=== PATIENT | female | born 2000 | race African-American/Black ===

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

== ENCOUNTER 2018-02-12 13:10 | Emergency (ER) | payer MEDICAID ==
[~2018-02-12] VITALS: Ht 162.6 cm; Wt 63.5 kg
[2018-02-12 13:21] VITALS: BP 115/77
[2018-02-12] MEDS ORDERED: SODIUM CHLORIDE 0.9% 1,000 ML IVB ONE (13:26)
[2018-02-12] MEDS ORDERED: PANTOPRAZOLE 40 MG/10 ML VIAL IV STA (13:26)
[2018-02-12] MEDS ORDERED: PROCHLORPERAZINE EDISYLATE 5 MG/ML 2ML VIAL IV ONE (13:30)
[2018-02-12] MEDS ORDERED: MORPHINE SULFATE 4 MG/ML SYR/VIAL IV ONE (13:30)
[2018-02-12 15:26] LABS: Basophils # (auto) 0 uL; Basophils % (auto) 0.3 % (0.0-2.0); Eosinophils # (auto) 0 uL; Eosinophils % (auto) 0.9 % (0.0-7.0); Hematocrit 45.1 % (36.0-46.0); Hemoglobin 15.2 g/dL (12.2-16.2); Lymphocytes # (auto) 0.9 uL; Mean Corpuscular Hemoglobin 30.6 pg (28.0-32.0); Mean Corpuscular Hgb Conc. 33.8 g/dL (32.0-36.0); Mean Corpuscular Volume 90.4 fL (80.0-100.0); Monocytes # (auto) 0.5 uL; Monocytes % (auto) 8.9 % (0.0-12.0); Neutrophils % (auto) 73.9 % (37.0-80.0); Nucleated Red Blood Cells % 0.2 %; Platelet Count (auto) 301 10^3/uL (140-450); Red Blood Cells 4.99 10^6/uL (4.0-5.20); Red Cell Distribution Width 13.6 % (11.8-14.3); White Blood Cell 5.4 10^3/uL (4.4-10.8)
[2018-02-12 15:36] LABS: Albumin 4.4 g/dL (3.4-5.0); BUN/Creatinine Ratio 10.8; Calcium 9.1 mg/dL (8.5-10.1); Potassium 3.3 mmol/L (3.5-5.1); Total Protein 8.8 g/dL (6.4-8.2)
== END 2018-02-12 17:54 | disposition home or self-care (01) ==
LOC: EDBD 13:10 → ER 13:10
DX: F12.188 Cannabis abuse with other cannabis-induced disorder (principal); R11.10 Vomiting, unspecified; F17.210 Nicotine dependence, cigarettes, uncomplicated
CPT/HCPCS: 36415; 80053; 83690; 85025; 94761

== ENCOUNTER 2020-12-24 02:52 | Emergency (ER) | payer MEDICAID ==
[~2020-12-24] VITALS: Ht 162.6 cm; Wt 63.5 kg
[2020-12-24 04:04] VITALS: BP 121/86
== END 2020-12-24 04:04 | disposition left against medical advice (07) ==
LOC: ER 02:52
DX: T15.82XA Foreign body in other and multiple parts of external eye, left eye, initial encounter (principal); F17.210 Nicotine dependence, cigarettes, uncomplicated; F12.10 Cannabis abuse, uncomplicated; W22.8XXA Striking against or struck by other objects, initial encounter; Y93.89 Activity, other specified; Y92.89 Other specified places as the place of occurrence of the external cause; Y99.8 Other external cause status

== ENCOUNTER 2022-01-27 16:36 | Emergency (ER) | payer MEDICAID ==
[~2022-01-27] VITALS: Ht 162.6 cm; Wt 78.0 kg
[2022-01-27] MEDS ORDERED: ALPRAZolam 0.5 MG TAB PO ONE (18:00)
[2022-01-27] MEDS ORDERED: ALPR1TAB2 PO (18:20)
[2022-01-27] MEDS ORDERED: KEP500T PO (18:20)
[2022-01-27 18:24] VITALS: BP 93/53
== END 2022-01-27 18:27 | disposition home or self-care (01) ==
LOC: ER 16:36
DX: F41.9 Anxiety disorder, unspecified (principal); R56.9 Unspecified convulsions; F17.210 Nicotine dependence, cigarettes, uncomplicated; F12.10 Cannabis abuse, uncomplicated; Z76.0 Encounter for issue of repeat prescription

== ENCOUNTER 2022-04-13 10:05 | Emergency (ER) | payer MEDICAID ==
[~2022-04-13] VITALS: Ht 162.6 cm; Wt 76.1 kg
[~2022-04-13 10:05] MED LIST: ALPR1TAB2 PO; KEP500T PO
[2022-04-13 13:30] VITALS: BP 136/72
[2022-04-13] MEDS ORDERED: HYDR-3682 PO (13:39)
[2022-04-13] MEDS ORDERED: LORazepam 0.5 MG TAB PO ONE (13:45)
[2022-04-13] MEDS ORDERED: ALPRAZolam 0.5 MG TAB PO ONE (13:45)
== END 2022-04-13 14:02 | disposition home or self-care (01) ==
LOC: ER 10:05
DX: F41.9 Anxiety disorder, unspecified (principal)

== ENCOUNTER 2023-03-14 11:55 | Emergency (ER) | payer MEDICAID ==
[~2023-03-14] VITALS: Ht 162.6 cm; Wt 66.5 kg
[~2023-03-14 11:55] MED LIST changes: +HYDR-3682 PO
[2023-03-14 12:02] VITALS: BP 136/85; PULSE 76; RESP 16; O2SAT 97
== END 2023-03-14 14:04 | disposition left against medical advice (07) ==
LOC: ER 11:55
DX: F41.9 Anxiety disorder, unspecified (principal); Z53.21 Procedure and treatment not carried out due to patient leaving prior to being seen by health care provider

== ENCOUNTER 2023-05-21 11:52 | Emergency (ER) | payer MEDICAID ==
[~2023-05-21] VITALS: Ht 162.6 cm; Wt 69.5 kg
[2023-05-21 12:00] VITALS: BP 112/72; PULSE 65; RESP 18; O2SAT 99
== END 2023-05-21 14:19 | disposition left against medical advice (07) ==
LOC: ER 11:52
DX: H57.89 Other specified disorders of eye and adnexa (principal); Z53.21 Procedure and treatment not carried out due to patient leaving prior to being seen by health care provider

== ENCOUNTER 2023-10-05 21:35 | Emergency (ER) | payer MEDICAID ==
[~2023-10-05] VITALS: Ht 160 cm; Wt 61.9 kg
[2023-10-05 21:35] VITALS: BP 120/78; PULSE 80; RESP 14; O2SAT 99
== END 2023-10-06 02:52 | disposition left against medical advice (07) ==
LOC: ER 21:35
DX: K08.89 Other specified disorders of teeth and supporting structures (principal); Z53.21 Procedure and treatment not carried out due to patient leaving prior to being seen by health care provider

== ENCOUNTER 2024-08-16 12:15 | Emergency (ER) | payer MEDICAID ==
[~2024-08-16] VITALS: Ht 162.6 cm; Wt 53.0 kg
[2024-08-16 14:25] VITALS: BP 100/74; PULSE 94; RESP 21; TEMP 97.6; O2SAT 100
--- NOTE | 2024-08-16 14:28 | ED.PDOC ---
Eye-HPI HPI Comments A 24 YEAR OLD FEMALE PRESENTS TO THE ED WITH COMPLAINT OF RIGHT LOWER DENTAL PAIN. PATIENT STATES SHE HAS BEEN EXPERIENCING DENTAL PAIN ON THE RIGHT LOWER SIDE OF HER MOUTH FOR THE PAST 3 DAYS. PATIENT REPORTS SHE WAS TRIED OTC PAIN MEDICATIONS WITH MINIMAL IMPROVEMENT. PATIENT DENIES FEVER, CHILLS, SHORTNESS OF BREATH, CHEST PAIN, ABDOMINAL PAIN, NAUSEA, VOMITING, HEADACHE, OR OTHER COMPLAINTS. NO OTHER SYMPTOMS OR MODIFYING FACTORS AT THIS TIME. PATIENT IS ALERT, ORIENTED X 4, AND HAS STEADY GAIT. Chief Complaint: Tooth Pain Time Seen by MD: 12:41 Primary Care Provider: NONE Reviewed Notes: Nurses Notes, Medications, Allergies Allergies: Coded Allergies: NO KNOWN ALLERGIES (Unverified , 06/15/15) Home Meds Active Scripts Benzocaine (Dental) (HURRICAINE SPRAY) 1 Spr Sp, 1 SPR MT TID, #100 SPRAY Prov:ANUSHA MANRIQUEZ 08/16/24 Clindamycin Hcl (Clindamycin Hcl) 300 Mg Cap, 1 CAP PO TID, #30 CAP Prov:ANUSHA MANRIQUEZ 08/16/24 Hydroxyzine Hcl (Hydroxyzine Hcl) 25 Mg Tab, 1 TAB PO PRN, #15 TAB 0 Refills 1-2 tablets up to 4 times daily, as needed Prov:HERACLIO SAEED 04/13/22 Alprazolam (Xanax) 1 Mg Tab, 1 TAB PO BID, #12 TAB Prov:ANUSHA MANRIQUEZ 01/27/22 Levetiracetam (KEPPRA TABLET) 500 Mg Tb, 500 MG PO BID, #30 TAB Prov:ANUSHA MANRIQUEZ 01/27/22 Information Source: Patient Mode of Arrival: Ambulatory Timing: Days Duration: Since onset, Days Prehospital treatment: None Quality: Pain, Red Lids: Normal Conjunctiva: Normal Cornea: Normal Pupils: Normal EOM: Normal Fundus: Normal Slit lamp exam: Normal Anterior chamber: Normal Mouth Location: Right, Lower, Tooth/Teeth, Gums Mouth: Right, Lower, Premolar, Molar, Tender, Carious ENT Ear Exam: Normal, Normal, Normal Nose: Normal Sinuses: Normal Oropharynx: Normal Onset: Spontaneous Throat Exposed to: None History of: None Last Tetanus: Unknown Modifying factors: Nothing Associated signs and symptoms: Tooth Pain Past Medical History PAST MEDICAL HISTORY: Anxiety, Seizures Surgical History: Denies all surgeries PAPER MILL MANAGER History: No Pertinent PAPER MILL MANAGER History Family History Family History: Reviewed,noncontributory to illness Social History Smoker: Non-Smoker Alcohol: Denies ETOH Use Drugs: Denies Drug Use Lives In: Home Constitutional: denies: chills, diaphoresis, fatigue, fever, malaise, sweats, weakness, others EENTM: reports: mouth pain (RIGHT LOWER DENTAL PAIN); denies: blurred vision, double vision, ear bleeding, ear discharge, ear drainage, ear pain, ear ringing, eye pain, eye redness, hearing loss, mouth swelling, nasal discharge, nose bleeding, nose congestion, nose pain, photophobia, tearing, throat pain, throat swelling, voice changes, others Respiratory: denies: cough, hemoptysis, orthopnea, SOB at rest, shortness of b reath, SOB with excertion, stridor, wheezing, others Cardiovascular: denies: chest pain, dizzy spells, diaphoresis, Dyspnea on exertion, edema, irregular heart beat, left arm pain, lightheadedness, palpitations, PND, syncope, others Gastrointestinal: denies: abdomen distended, abdominal pain, blood streaked bowels, constipated, diarrhea, dysphagia, difficulty swallowing, hematemesis, melena, nausea, poor appetite, poor fluid intake, rectal bleeding, rectal pain, vomiting, others Genitourinary: denies: abnormal vagina bleeding, burning, dyspareunia, dysuria, flank pain, frequency, hematuria, incontinence, pain, , vagina discharge, urgency, others Neurological: denies: dizziness, fainting, headache, left sided numbness, left sided weakness, numbness, paresthesia, pre-existing deficit, right sided numbness, right sided weakness, seizure, speech problems, tingling, tremors, weakness, others Musculoskeletal: denies: back pain, gout, joint pain, joint swelling, muscle pain, muscle stiffness, neck pain, others Integumetry: denies: bruises, change in color, change in hair/nails, dryness, laceration, lesions, lumps, rash, wounds, others Allergic/Immunocompromised: denies: Difficulty Healing, Frequent Infections, Hives, Itching, others Hematologic/Lymphatic: denies: anemia, blood clots, easy bleeding, easy bruising, swollen glands, others Endocrine: denies: excessive hunger, excessive sweating, excessive thirst, excessive urination, flushing, intolerance to cold, intolerance to heat, unexplained weight gain, unexplained weight loss, others Psychiatric: denies: anxiety, bipolar disorder, depression, hopeless, panic disorder, schizophrenia, sleepless, suicidal, others All Other Systems: Reviewed and Negative Physical Exam General Appearance: No Apparent Distress, Normal HEENT: Normal ENT Inspection, PERRL/EOMI, Pharynx Normal, TMs Normal, Other (ERYTHEMA AND SWELLING ON BILATERAL UPPER GUM AROUND TOOTH, DENTAL INFECTION, NO FACIAL SWELLING. ) Neck: Full Range of Motion, Non-Tender, Normal, Normal Inspection Respiratory: Chest Non-Tender, Lungs Clear, No Accessory Muscle Use, No Respiratory Distress, Normal Breath Sounds Cardiovascular: No Edema, No JVD, No Murmur, No Gallop, Normal Peripheral Pulses, Regular Rate/Rhythm Breast Exam: Deferred Gastrointestinal: No Organomegaly, Non Tender, No Pulsatile Mass, Normal Bowel Sounds, Soft Genitalia: Deferred Pelvic: Deferred Rectal: Deferred Extremities: No calf tenderness, Normal capillary refill, Normal inspection, Normal range of motion, Non-tender, No pedal edema Musculoskeletal : Apperance: Normal Neurologic: Alert, audio recording engineer II-XII nml as Tested, No Motor Deficits, Normal Affect, Normal Mood, No Sensory Deficits Cerebellar Function: Normal Reflexes: Normal Skin: Dry, Normal Color, Warm Peripheral Pulses: 2+ carotid (R), 2+ carotid (L) Lymphatic: No Adenopathy Was a procedure done? Was a procedure done?: No EENT DIFF Eye: N/A Ear: Otitis Externa, Otitis Media, Dental, N/A Nose: N/A Mouth: Other (DENTAL PAIN, DENTAL CARIES, DENTAL INFECTION, DENTAL ABSCESS, GINGIVITIS) Sore Throat: N/A X-Ray, Labs, Meds, VS Vital Signs Date Time Temp Pulse Resp B/P (MAP) Pulse Ox O2 Delivery O2 Flow Rate FiO2 08/16/24 14:25 97.6 94 21 100/74 (83) 100 97.6 08/16/24 14:25 94 21 100 Room Air 08/16/24 12:35 97.6 94 20 100/74 (83) 100 97.6 Current Medications Medications (Trade) Dose Ordered Sig/Margot Route Start Time Stop Time Status Last Admin Acetaminophen/ Hydrocodone Bitart ([place] 5/325MG Tab) 1 tab ONCE ONCE PO 08/16/24 14:30 08/16/24 14:31 DC 08/16/24 14:33 X-Ray, Labs, Meds, VS Comment EXTERNAL MEDICAL RECORDS REVIEWED: [NONE] INDEPENDENT HISTORIANS: [NONE] SOCIAL DETERMINANTS OF HEALTH: [NONE] LABS ORDERED: NONE REVIEWED AND INTERPRETED RESULTS: NONE IMAGING ORDERED: NONE TREATMENTS ORDERED: NORCO 5/325 MG P.O. PROCEDURES PERFORMED: NONE CRITICAL CARE TIME: NONE I HAVE DISCUSSED THE PATIENT WITH THE ATTENDING PHYSICIAN DR. FIERRO AND HE AGREES WITH THE PATIENT'S PLAN OF CARE AND DISPOSITION. BASED ON HISTORY OF PRESENT ILLNESS, AND PHYSICAL EXAM, PATIENT WILL BE DISCHARGED HOME. DISCUSSED PLAN FOR DISCHARGE HOME WITH RX [CLINDAMYCIN AND HU RRICANE SPRAY]. MEDICATION WARNINGS GIVEN. SHARED DECISION MAKING: PATIENT INSTRUCTED TO FOLLOW UP WITH PRIMARY CARE PROVIDER IN 1-2 DAYS FOR RE-EVALUATION OF SYMPTOMS. PATIENT VERBALIZES UNDERSTANDING TO RETURN TO ED FOR NEW OR WORSENING SYMPTOMS OR IF FOLLOW UP WITH PCP CANNOT BE OBTAINED. PATIENT FEELS COMFORTABLE GOING HOME AT THIS TIME. ALL QUESTIONS ADDRESSED AT TIME OF DISCHARGE. Time of 1ST Reevaluation: 15:00 Reevaluation 1ST: Improved Patient Education/Counseling: Diagnosis, Treatment, Need For Follow Up Family Education/Counseling: Diagnosis, Treatment, Need For Follow Up Medical Screening: No EMC Exist At This Time Departure 1 Departure Time of Disposition: 15:00 Impression: Primary Impression: Dental infection Disposition: 01 HOME / SELF CARE / HOMELESS Condition: Stable Additional Instructions: FOLLOW-UP WITH PCP AND DENTIST IN 1 TO 2 DAYS. TAKE MEDICATIONS PRESCRIBED. RETURN TO ED FOR ANY NEW OR WORSENING SYMPTOMS. e-Prescriptions Benzocaine (Dental) (HURRICAINE SPRAY) 1 Spr Sp 1 SPR MT TID, #100 SPRAY Prov: ANUSHA MANRIQUEZ 08/16/24 Clindamycin Hcl (Clindamycin Hcl) 300 Mg Cap 1 CAP PO TID, #30 CAP Prov: ANUSHA MANRIQUEZ 08/16/24 Discharged With: Self Critical Care Note Critical Care Time?: No Stability Stability form required: No I personally scribed for ANUSHA MANRIQUEZ ([email or web address]) on 08/16/24 at 14:28. Electronically submitted by Feng Mclean ([email or web address]). ANUSHA MANRIQUEZ Aug 16, 2024 14:28
[2024-08-16] MEDS: HYDROcodone-ACET 5/325MG TAB PO ONE (14:33)
[2024-08-16] MEDS ORDERED: HUR60 MT (14:47)
[2024-08-16] MEDS ORDERED: CLIN1CAP70 PO (14:47)
== END 2024-08-16 14:53 | disposition home or self-care (01) ==
LOC: ER 12:15
DX: K04.7 Periapical abscess without sinus (principal); F41.9 Anxiety disorder, unspecified; Z79.899 Other long term (current) drug therapy

== ENCOUNTER 2025-01-09 01:13 | Emergency (ER) | payer MEDICAID ==
[~2025-01-09] VITALS: Ht 162.6 cm; Wt 60.0 kg
[~2025-01-09 01:13] MED LIST changes: +CLIN1CAP70 PO; +HUR60 MT
[2025-01-09 01:16] VITALS: BP 125/76; PULSE 84; RESP 16; TEMP 98.3; O2SAT 99
[2025-01-09] MEDS ORDERED: ACET500T58 PO (01:52)
[2025-01-09] MEDS ORDERED: AMOX875T4 PO (01:52)
--- NOTE | 2025-01-09 01:52 | ED.PDOC ---
Eye-HPI HPI Comments 24-year-old female presents to ER with complaints of toothache x2 days. Patient reports that she has been experiencing left lower toothache pain x2 days. She rates her current pain a 9/10 and denies use of medications for current symptoms. Patient presents to ER ambulatory on arrival, with steady gait, in no distress. Denies fever, body aches, chills, headache or any further symptoms/complaints Chief Complaint: Tooth Pain Time Seen by MD: 01:27 Primary Care Provider: NONE Reviewed Notes: Nurses Notes, Medications, Allergies Allergies: Coded Allergies: NO KNOWN ALLERGIES (Unverified , 06/15/15) Home Meds Active Scripts Amoxicillin & Pot Clavulanate (Amoxicillin/Potassium Cla) 875 Mg Tab, 1 TAB PO BID for 7 Days, #14 TAB 0 Refills Prov:NOREEN WALTON 01/09/25 Acetaminophen (Acetaminophen) 500 Mg Tab, 500 MG PO Q4HPRN, #30 TAB 0 Refills Prov:NOREEN WALTON 01/09/25 Benzocaine (Dental) (HURRICAINE SPRAY) 1 Spr Sp, 1 SPR MT TID, #100 SPRAY Prov:ANUSHA MANRIQUEZ 08/16/24 Clindamycin Hcl (Clindamycin Hcl) 300 Mg Cap, 1 CAP PO TID, #30 CAP Prov:ANUSHA MANRIQUEZ 08/16/24 Hydroxyzine Hcl (Hydroxyzine Hcl) 25 Mg Tab, 1 TAB PO PRN, #15 TAB 0 Refills 1-2 tablets up to 4 times daily, as needed Prov:HERACLIO SAEED 04/13/22 Alprazolam (Xanax) 1 Mg Tab, 1 TAB PO BID, #12 TAB Prov:ANUSHA MANRIQUEZ 01/27/22 Levetiracetam (KEPPRA TABLET) 500 Mg Tb, 500 MG PO BID, #30 TAB Prov:ANUSHA MANRIQUEZ 01/27/22 Information Source: Patient Mode of Arrival: Ambulatory Past Medical History PAST MEDICAL HISTORY: Anxiety, Seizures Surgical History: Denies all surgeries SHAREPOINT ADMIN History: No Pertinent SHAREPOINT ADMIN History Family History Family History: Unknown Social History Smoker: Non-Smoker Alcohol: Denies ETOH Use Drugs: Denies Drug Use Lives In: Home Constitutional: denies: chills, diaphoresis, fatigue, fever, malaise, sweats, weakness, others EENTM: reports: others (As stated in HPI) Respiratory: denies: cough, hemoptysis, orthopnea, SOB at rest, shortness of breath, SOB with excertion, stridor, wheezing, others Cardiovascular: denies: chest pain, dizzy spells, diaphoresis, Dyspnea on exertion, edema, irregular heart beat, left arm pain, lightheadedness, palpitations, PND, syncope, others Gastrointestinal: denies: abdomen distended, abdominal pain, blood streaked bowels, constipated, diarrhea, dysphagia, difficulty swallowing, hematemesis, melena, nausea, poor appetite, poor fluid intake, rectal bleeding, rectal pain, vomiting, others Genitourinary: denies: abnormal vagina bleeding, burning, dyspareunia, dysuria, flank pain, frequency, hematuria, incontinence, pain, , vagina discharge, urgency, others Neurological: denies: dizziness, fainting, headache, left sided numbness, left sided weakness, numbness, paresthesia, pre-existing deficit, right sided numbness, right sided weakness, seizure, speech problems, tingling, tremors, weakness, others Musculoskeletal: denies: back pain, gout, joint pain, joint swelling, muscle pain, muscle stiffness, neck pain, others Integumetry: denies: bruises, change in color, change in hair/nails, dryness, laceration, lesions, lumps, rash, wounds, others Allergic/Immunocompromised: denies: Difficulty Healing, Frequent Infections, Hives, Itching, others Hematologic/Lymphatic: denies: anemia, blood clots, easy bleeding, easy bruising, swollen glands, others Endocrine: denies: excessive hunger, excessive sweating, excessive thirst, excessive urination, flushing, intolerance to cold, intolerance to heat, unexplained weight gain, unexplained weight loss, others Psychiatric: denies: anxiety, bipolar disorder, depression, hopeless, panic disorder, schizophrenia, sleepless, suicidal, others Physical Exam General Appearance: No Apparent Distress HEENT: PERRL/EOMI, Pharynx Normal, TMs Normal, Other (Several left lower posterior teeth missing with mild swelling/erythema to surrounding gums, no bleeding/drainage noted. No facial swelling/skin changes noted) Neck: Full Range of Motion, Non-Tender, Normal Respiratory: Chest Non-Tender, Lungs Clear, No Accessory Muscle Use, No Respiratory Distress, Normal Breath Sounds Cardiovascular: No Murmur, No Gallop, Regular Rate/Rhythm Breast Exam: Deferred Gastrointestinal: NOT DONE Genitalia: Deferred Pelvic: Deferred Rectal: Deferred Extremities: Normal capillary refill, Normal range of motion Neurologic: Alert, product developer II-XII nml as Tested, No Motor Deficits, Normal Affect, Normal Mood, No Sensory Deficits Cerebellar Function: Normal Reflexes: Normal Skin: Dry, Normal Color, Warm Lymphatic: No Adenopathy Was a procedure done? Was a procedure done?: No Sedation Sedation?: No EENT DIFF Eye: N/A Mouth: Thrush, Other (Dental abscess, Tano's angina) X-Ray, Labs, Meds, VS Vital Signs Date Time Temp Pulse Resp B/P (MAP) Pulse Ox O2 Delivery O2 Flow Rate FiO2 01/09/25 01:16 98.3 84 16 125/76 99 98.3 Hurricane spray ordered, patient educated on proper use/dosage Rocephin 1 g IM ordered Patient had improvement in symptoms and in no distress prior to discharge Advised to follow up with PCP and dentist in 1-2 days Patient verbalized understanding and agreeable with current plan of care Advised to return to ER immediately if symptoms worsen Time of 1ST Reevaluation: 01:34 Reevaluation 1ST: N/A Patient Education/Counseling: Diagnosis, Treatment, Prognosis, Need For Follow Up Family Education/Counseling: No Family Present SEPSIS Sepsis Screen Date sepsis recognized/suspect: Jan 09, 2025 Time Sepsis recognized/suspect: 0116 Recent Procedure: No On Antibiotic Therapy: No Respiratory Rate >20: No Heart Rate >90: No Temp<36 C (96.8 F) or >38.3 C: No SBP <90 or MAP <65 mmHG: No New Acute Mental Status Change: No Is the patient on CPAP, BIPAP,: No Vital Signs Date Time Temp Pulse Resp B/P (MAP) Pulse Ox O2 Delivery O2 Flow Rate FiO2 01/09/25 01:16 98.3 84 16 125/76 99 98.3 Departure 1 Departure Time of Disposition: 01:50 Impression: Primary Impression: Dental infection Disposition: HOME / SELF CARE / HOMELESS Condition: Stable e-Prescriptions Amoxicillin & Pot Clavulanate (Amoxicillin/Potassium Cla) 875 Mg Tab 1 TAB PO BID for 7 Days, #14 TAB 0 Refills Prov: NOREEN WALTON 01/09/25 Acetaminophen (Acetaminophen) 500 Mg Tab 500 MG PO Q4HPRN, #30 TAB 0 Refills Prov: NOREEN WALTON 01/09/25 Discharged With: Self Critical Care Note Critical Care Time?: No Stability Stability form required: No Heart Score Heart Score: Heart Score Response (Comments) Value History N/A 0 EKG N/A 0 Age N/A 0 Risk Factors N/A 0 Troponin N/A 0 Total 0 NOREEN WALTON Jan 09, 2025 01:52
[2025-01-09] MEDS: BENZOCAINE (DENTAL) 20 % SPRAY 60ML MT ONE (02:00)
[2025-01-09] MEDS: cefTRIAXone SOD 1,000 MG VL IM ONE (02:00)
== END 2025-01-09 03:06 | disposition home or self-care (01) ==
LOC: ER 01:13
DX: K04.7 Periapical abscess without sinus (principal); F41.9 Anxiety disorder, unspecified; Z79.899 Other long term (current) drug therapy
CPT/HCPCS: 96372; 99283; J0696

== ENCOUNTER 2025-03-17 11:35 | Emergency (ER) | payer MEDICAID ==
[~2025-03-17] VITALS: Ht 162.6 cm; Wt 57.5 kg
[~2025-03-17 11:35] MED LIST changes: +ACET500T58 PO; +AMOX875T4 PO
--- NOTE | 2025-03-17 13:00 | ED.PDOC ---
Eye-HPI HPI Comments This is a pleasant 25-year-old female with no MHx that presents with a chief complaint of a headache located to the frontal lobe and tooth pain located to the bilateral upper quadrants Patient reports the pain is affecting her ability to speak Patient reports that she is currently undergoing dental work at this time. She is currently on antibiotics but does not recall the name of the medication. She does have a history of not completing antibiotic courses in the past due to her feeling sick. Currently she is managing her pain with [id number] Tylenol and Motrin with minimal improvement. Chief Complaint: Tooth Pain Time Seen by MD: 11:46 Primary Care Provider: NONE Reviewed Notes: Nurses Notes, Medications, Allergies Allergies: Coded Allergies: NO KNOWN ALLERGIES (Unverified , 06/15/15) Home Meds Active Scripts Acetaminophen W/ Codeine (Tylenol W/Cod #3) 1 Tab Tb, 1 TAB PO Q8HP PRN for 3 Days, #9 TAB 0 Refills Prov:JOSSIE SCOTT SALES TRAINING REPRESENTATIVE 03/17/25 Amoxicillin & Pot Clavulanate (Amoxicillin/Potassium Cla) 875 Mg Tab, 1 TAB PO BID for 7 Days, #14 TAB 0 Refills Prov:NOREEN WALTON 01/09/25 Acetaminophen (Acetaminophen) 500 Mg Tab, 500 MG PO Q4HPRN, #30 TAB 0 Refills Prov:NOREEN WALTON 01/09/25 Benzocaine (Dental) (HURRICAINE SPRAY) 1 Spr Sp, 1 SPR MT TID, #100 SPRAY Prov:ANUSHA MANRIQUEZ 08/16/24 Clindamycin Hcl (Clindamycin Hcl) 300 Mg Cap, 1 CAP PO TID, #30 CAP Prov:ANUSHA MANRIQUEZ 08/16/24 Hydroxyzine Hcl (Hydroxyzine Hcl) 25 Mg Tab, 1 TAB PO PRN, #15 TAB 0 Refills 1-2 tablets up to 4 times daily, as needed Prov:HERACLIO SAEED 04/13/22 Alprazolam (Xanax) 1 Mg Tab, 1 TAB PO BID, #12 TAB Prov:ANUSHA MANRIQUEZ 01/27/22 Levetiracetam (KEPPRA TABLET) 500 Mg Tb, 500 MG PO BID, #30 TAB Prov:ANUSHA MANRIQUEZ 01/27/22 Information Source: Patient Mode of Arrival: Ambulatory Past Medical History PAST MEDICAL HISTORY: Anxiety, Seizures Surgical History: Denies all surgeries SKI LIFT OPERATOR History: No Pertinent SKI LIFT OPERATOR History Family History Family History: Unknown Social History Smoker: Non-Smoker Alcohol: Denies ETOH Use Drugs: Denies Drug Use Lives In: Home Physical Exam General Appearance: No Apparent Distress, Normal HEENT: Normal ENT Inspection, Pharynx Normal, TMs Normal, Other (Moist mucous membranes. No airway obstruction. Noticeable dental caries) Neck: Full Range of Motion, Non-Tender, Normal, Normal Inspection Respiratory: Chest Non-Tender, Lungs Clear, No Accessory Muscle Use, No Respiratory Distress, Normal Breath Sounds Cardiovascular: No Edema, No JVD, No Murmur, No Gallop, Normal Peripheral Pulses, Regular Rate/Rhythm Breast Exam: Deferred Gastrointestinal: No Organomegaly, Non Tender, No Pulsatile Mass, Normal Bowel Sounds, Soft Genitalia: Deferred Pelvic: Deferred Rectal: Deferred Extremities: No calf tenderness, Normal capillary refill, Normal inspection, Normal range of motion, Non-tender, No pedal edema Musculoskeletal : Apperance: Normal Neurologic: Alert, fringe weaver II-XII nml as Tested, No Motor Deficits, Normal Affect, Normal Mood, No Sensory Deficits Cerebellar Function: Normal Reflexes: Normal Skin: Dry, Normal Color, Warm Lymphatic: No Adenopathy Was a procedure done? Was a procedure done?: No EENT DIFF Eye: Other X-Ray, Labs, Meds, VS Vital Signs Date Time Temp Pulse Resp B/P (MAP) Pulse Ox O2 Delivery O2 Flow Rate FiO2 03/17/25 13:58 98.2 77 16 112/82 (92) 98 98.2 03/17/25 13:58 78 17 98 Room Air 03/17/25 11:36 98.4 95 18 116/84 98 98.4 Lab Test 03/17/25 13:03 Range/Units White Blood Count 3.6 L 4.4-10.8 10^3/uL Red Blood Count 5.10 4.0-5.20 10^6/uL Hemoglobin 15.8 12.2-16.2 g/dL Hematocrit 46.2 H 36.0-46.0 % Mean Corpuscular Volume 90.6 80.0-100.0 fL Mean Corpuscular Hemoglobin 31.0 28.0-32.0 pg Mean Corpuscular Hemoglobin Concent 34.3 32.0-36.0 g/dL Red Cell Distribution Width 13.6 11.8-14.3 % Platelet Count 324 140-450 10^3/uL Mean Platelet Volume 7.8 6.9-10.8 fL Neutrophils (%) (Auto) 42.8 37.0-80.0 % Lymphocytes (%) (Auto) 44.5 10.0-50.0 % Monocytes (%) (Auto) 8.5 0.0-12.0 % Eosinophils (%) (Auto) 2.7 0.0-7.0 % Basophils (%) (Auto) 1.5 0.0-2.0 % Neutrophils # (Auto) 1.5 L 1.6-8.6 10 ^3/uL Lymphocytes # (Auto) 1.6 0.4-5.4 10 ^3/uL Monocytes # (Auto) 0.3 0-1.3 10 ^3/uL Eosinophils # (Auto) 0.1 0-0.8 10 ^3/uL Basophils # (Auto) 0.1 0-0.2 10 ^3/uL Nucleated Red Blood Cells 0.1 % Sodium Level 138 136-145 mmol/L Potassium Level 4.6 3.5-5.1 mmol/L Chloride Level 104 98-107 mmol/L Carbon Dioxide Level 23 20-31 mmol/L Anion Gap 11 5-15 Blood Urea Nitrogen 10 9-23 mg/dL Creatinine 0.99 0.550-1.02 mg/dL Glomerular Filtration Rate Calc 80 >90 mL/min BUN/Creatinine Ratio 10.1 10.0-20.0 Serum Glucose 90 74-106 mg/dL Calcium Level 10.7 H 8.7-10.4 mg/dL Current Medications Medications (Trade) Dose Ordered Sig/Margot Route Start Time Stop Time Status Last Admin Acetaminophen/ Codeine Phosphate (Tylenol W/Cod #3 Tablet) 1 tab ONCE ONCE PO 03/17/25 13:00 03/17/25 13:10 DC 03/17/25 13:14 KAYLA CHAMORRO Sold: 02/18/2025 Filled: 02/18/2025 HYDROCODONE BITARTRATE, ACETAMINOPHEN Refill 0 of 0 5-325 MG TAB Days: 3 Qty: 7 Daily: 11.7 Total: 35.1 STU SHARPE LEXI: [id number] [facility] -[id number] Pharmacy #: [id number] Serialized Rx: NOT REPORTED Pharmacy Rx: [id number] X-Ray, Labs, Meds, VS Comment Dental Carries/Tooth Pain Patient not immunosuppressed. No evidence of tooth fracture, avulsion, or bleeding socket. No e/o retropharangeal abscess, peritonsillar abscess, Ludwigs angina, periapical abscess. No e/o gingival hyperplasia or concern for drug reaction. Checked the [employer] website, no history of narcotic use within the past year. Will prescribe [place] p.o. for pain management. Education provided on possible side effects of medication including drowsiness, nausea, respiratory distress, etc. Do not drive, operate heavy machinery or make legal decisions while taking medication. Follow-up with your PMD within 24 to 48 hours. On reevaluation, patient had symptomatic improvement. Patient is stable for discharge at this time. External notes reviewed. Test results and diagnostic imaging interpreted. All diagnostic findings, discharge care, education and instructions provided Follow-up with PCP in 2 to 3 days Patient verbalized understanding and agreed to treatment plan Vital signs stable, afebrile, no acute distress noted Patient ambulatory with strong steady gait Advised to return precautions for any new or worsening symptoms, return to ER immediately for re-evaluation Patient is aware that the purpose of this visit was for an acute medical emergency requiring emergent stabilization. Chronic conditions, including malignancies have not been ruled out. Patient is instructed to follow up with PCP as directed and discharge instructions for continued care and workup. If unable to arrange follow-up, patient is to return to the emergency department for reassessment. Patient (parent or legal guardian if applicable) was given verbal and written discharge instructions and acknowledges understanding. Time of 1ST Reevaluation: 12:58 Reevaluation 1ST: Improved Patient Education/Counseling: Diagnosis, Treatment Family Education/Counseling: Diagnosis, Treatment SEPSIS Sepsis Screen Date sepsis recognized/suspect: Mar 17, 2025 Time Sepsis recognized/suspect: 1136 Recent Procedure: No On Antibiotic Therapy: No Respiratory Rate >20: No Heart Rate >90: Yes Temp<36 C (96.8 F) or >38.3 C: No SBP <90 or MAP <65 mmHG: No New Acute Mental Status Change: No Is the patient on CPAP, BIPAP,: No Vital Signs Date Time Temp Pulse Resp B/P (MAP) Pulse Ox O2 Delivery O2 Flow Rate FiO2 03/17/25 13:58 98.2 77 16 112/82 (92) 98 98.2 03/17/25 13:58 78 17 98 Room Air 03/17/25 11:36 98.4 95 18 116/84 98 98.4 Laboratory Tests Test 03/17/25 13:03 White Blood Count 3.6 10^3/uL (4.4-10.8) L Departure 1 Departure Time of Disposition: 13:45 Impression: Primary Impression: Dental caries Disposition: HOME / SELF CARE / HOMELESS Condition: Stable e-Prescriptions Acetaminophen W/ Codeine (Tylenol W/Cod #3) 1 Tab Tb 1 TAB PO Q8HP PRN for 3 Days, #9 TAB 0 Refills Prov: JOSSIE SCOTT NP 03/17/25 Critical Care Note Critical Care Time?: No Stability Stability form required: No Heart Score Heart Score: Heart Score Response (Comments) Value History N/A 0 EKG N/A 0 Age N/A 0 Risk Factors N/A 0 Troponin N/A 0 Total 0 JOSSIE SCOTT NP Mar 17, 2025 12:59
[2025-03-17] MEDS: ACETAMINOPHEN/CODEINE#3 (300/30mg) TAB PO ONE (13:14)
[2025-03-17 13:29] LABS: Hematocrit 46.2 % (36.0-46.0); Hemoglobin 15.8 g/dL (12.2-16.2); Mean Corpuscular Hemoglobin 31.0 pg (28.0-32.0); Mean Corpuscular Volume 90.6 fL (80.0-100.0); Nucleated Red Blood Cells % 0.1 %
[2025-03-17 13:34] LABS: Chloride 104 mmol/L (98-107); Potassium 4.6 mmol/L (3.5-5.1); Sodium 138 mmol/L (136-145)
[2025-03-17 13:35] LABS: Anion Gap 11 (5-15); Carbon Dioxide 23 mmol/L (20-31)
[2025-03-17 13:36] LABS: Calcium 10.7 mg/dL (8.7-10.4)
[2025-03-17 13:40] LABS: BUN/Creatinine Ratio 10.1 (10.0-20.0); Blood Urea Nitrogen 10 mg/dL (9-23); Glucose 90 mg/dL (74-106)
[2025-03-17] MEDS ORDERED: ACE3T PO (13:45)
[2025-03-17 13:58] VITALS: BP 112/82; PULSE 78; RESP 17; TEMP 98.2; O2SAT 98
== END 2025-03-17 14:01 | disposition home or self-care (01) ==
LOC: ER 11:35
DX: K02.9 Dental caries, unspecified (principal); F41.9 Anxiety disorder, unspecified; Z79.899 Other long term (current) drug therapy
CPT/HCPCS: 36415; 80048; 85025